=== PATIENT | male | born 1955 | race Caucasian/White ===

== ENCOUNTER 2017-09-16 19:58 | Emergency (ER) | payer MEDICARE, MEDICAID ==
[~2017-09-16] VITALS: Ht 170.2 cm; Wt 58.7 kg
[~2017-09-16 19:58] MED LIST: ALBU18HF2 PO; ASPI-1265 PO; COL100C PO; FLO0.4C PO; INSU100V9 SQ; LORA2TAB PO; MIRT30TA8 PO; MORP30TA PO; PANT-47 PO; TRAZ-143 PO
[2017-09-16] MEDS ORDERED: normal saline 1000ML IV soln IVB ONE (20:55)
[2017-09-16] MEDS: HYDROmorphone 1 mg/ml syringe IV PRN ×2 (21:07→21:46)
[2017-09-16 21:08] LABS: BASOPHILS # (AUTO) 0.1 X10'3 (0-0.2); BASOPHILS % (AUTO) 0.8 % (0-1); EOSINOPHILS # (AUTO) 0.2 X10'3 (0-0.9); EOSINOPHILS % (AUTO) 1.7 % (0-6); HEMATOCRIT 47.2 % (42.0-52.0); HEMOGLOBIN 15.6 g/dl (14.0-17.9); MEAN CORPUSCULAR HEMOGLOBIN 30.6 PG (27.0-31.0); MEAN CORPUSCULAR HGB CONC 33.1 % (33.0-36.5); MEAN CORPUSCULAR VOLUME 92.3 FL (78-98); MEAN PLATELET VOLUME 8.1 FL (7.4-10.4); MONOCYTES # (AUTO) 0.8 X10'3 (0-0.9); MONOCYTES % (AUTO) 6.9 % (2-12); NEUTROPHILS # (AUTO) 7.9 X10'3 (1.8-7.7); NEUTROPHILS % (AUTO) 72.6 % (42-75); PLATELET COUNT 263 X10'3 (140-440); RED BLOOD COUNT 5.12 X10'6 (4.70-6.10); RED CELL DISTRIBUTION WIDTH 14.1 % (11.5-14.5); WHITE BLOOD COUNT 10.9 X10'3 (4.5-11.0)
[2017-09-16 21:15] LABS: GLUCOSE, URINE >=1000 mg/dl (Neg); KETONES,URINE NEGATIVE (Neg); LEUKOCYTE ESTERASE ,URINE TRACE (Neg); NITRITES, URINE POSITIVE (Neg); OCCULT BLOOD,URINE LARGE (Neg); PH,URINE 5.5 (4.8-8.0); PROTEIN,URINE 100 mg/dl (Neg); UROBILINOGEN,URINE 0.2 E.U/dL (0.2-1.0)
[2017-09-16 21:18] LABS: COLOR,URINE BROWN (Yellow); UA COLLECTION TYPE CLN CATCH MIDSTREAM
[2017-09-16 21:22] LABS: CLARITY,URINE CLOUDY (Clear)
[2017-09-16 21:23] LABS: RBC,URINE TNTC /HPF (0-2); WBC,URINE 20-30 /HPF (0-4)
[2017-09-16 21:24] LABS: BACTERIA,URINE FEW /HPF (Neg); SQUAMOUS EPITHELIAL CELL,UR FEW /LPF (FEW); YEAST MANY /HPF (NEGATIVE)
[2017-09-16 21:25] LABS: ALANINE AMINOTRANSFERASE 18 U/L (12-78); ALBUMIN 3.4 G/DL (3.4-5.0); ALBUMIN/GLOBULIN RATIO 0.9 (1.1-1.5); ALKALINE PHOSPHATASE 71 IU/L (46-116); ANION GAP 7 (8-16); ASPARTATE AMINO TRANSFERASE 7 U/L (10-37); BILIRUBIN,TOTAL 0.2 MG/DL (0.1-1.0); BLOOD UREA NITROGEN 24 MG/DL (7-18); BUN/CREATININE RATIO 20.3 (5.4-32.0); CALCIUM 8.8 MG/DL (8.5-10.1); CHLORIDE 97 MMOL/L (99-107); CREATININE 1.18 MG/DL (0.60-1.10); LIPASE 134 U/L (73-393); POTASSIUM 4.3 MMOL/L (3.5-5.1); SODIUM 129 MMOL/L (135-145); TOTAL CARBON DIOXIDE 24.8 MMOL/L (24-32); eGFR 63 ML/MIN
[2017-09-16 21:33] LABS: GLUCOSE 552 MG/DL (70-104)
[2017-09-16] MEDS ORDERED: LEVO500T89 PO (22:00)
[2017-09-16] MEDS ORDERED: insulin regular, human 10 units/0.1 ml syringe IV ONE (22:00)
[2017-09-16] MEDS ORDERED: levoFLOXACIN 250mg tablet PO ONE (22:25)
[2017-09-16 22:26] VITALS: BP 154/107
== END 2017-09-16 22:32 | disposition home or self-care (01) ==
LOC: ER 19:59
DX: N39.0 Urinary tract infection, site not specified (principal); E11.65 Type 2 diabetes mellitus with hyperglycemia; R31.9 Hematuria, unspecified; E11.42 Type 2 diabetes mellitus with diabetic polyneuropathy; I25.10 Atherosclerotic heart disease of native coronary artery without angina pectoris; E78.00 Pure hypercholesterolemia, unspecified; I10 Essential (primary) hypertension; G89.29 Other chronic pain; F41.9 Anxiety disorder, unspecified; N28.9 Disorder of kidney and ureter, unspecified; Z88.6 Allergy status to analgesic agent; Z88.5 Allergy status to narcotic agent; Z88.8 Allergy status to other drugs, medicaments and biological substances; Z79.4 Long term (current) use of insulin; Z79.82 Long term (current) use of aspirin; Z79.899 Other long term (current) drug therapy; Z95.1 Presence of aortocoronary bypass graft; Z87.11 Personal history of peptic ulcer disease
CPT/HCPCS: 36415; 74176; 80053; 81001; 82948; 83690; 85025; 87077; 87088; 96374; 96375; 96376; 99285; J1170; J1815; J7030

== ENCOUNTER 2017-11-08 18:22 | Emergency (ER) | payer MEDICARE, MEDICAID ==
[~2017-11-08] VITALS: Ht 170.2 cm; Wt 129.0 kg
[2017-11-08] MEDS ORDERED: LORazepam 2 mg/ml vial IV ONE (18:50)
[2017-11-08 20:26] VITALS: BP 136/75
== END 2017-11-08 20:28 | disposition home or self-care (01) ==
LOC: ER 18:23
DX: F41.9 Anxiety disorder, unspecified (principal); E11.42 Type 2 diabetes mellitus with diabetic polyneuropathy; E78.00 Pure hypercholesterolemia, unspecified; I10 Essential (primary) hypertension; I25.10 Atherosclerotic heart disease of native coronary artery without angina pectoris; G89.29 Other chronic pain; Z95.1 Presence of aortocoronary bypass graft; Z88.5 Allergy status to narcotic agent; Z79.82 Long term (current) use of aspirin; Z79.4 Long term (current) use of insulin; Z79.899 Other long term (current) drug therapy
CPT/HCPCS: 93005; 96374; 99284; J2060

== ENCOUNTER 2017-12-09 13:50 | Inpatient (IN) | payer MEDICARE, MEDICAID ==
[~2017-12-09] VITALS: Ht 170.2 cm; Wt 59.5 kg
[~2017-12-09 13:50] MED LIST changes: -ASPI-1265 PO; +ATOR10TA PO; +CLON-529 PO; -COL100C PO; -MIRT30TA8 PO; -MORP30TA PO; -TRAZ-143 PO
[2017-12-09] MEDS ORDERED: BUPR900F3 BU (15:35)
[2017-12-09 16:02] LABS: BASOPHILS # (AUTO) 0.1 X10'3 (0-0.2); EOSINOPHILS # (AUTO) 0.1 X10'3 (0-0.9); EOSINOPHILS % (AUTO) 1.3 % (0-6); LYMPHOCYTES # (AUTO) 1.6 X10'3 (1.1-4.8); LYMPHOCYTES % (AUTO) 18.1 % (21-51); MEAN CORPUSCULAR HGB CONC 33.3 % (33.0-36.5); MEAN PLATELET VOLUME 8.8 FL (7.4-10.4); MONOCYTES # (AUTO) 0.9 X10'3 (0-0.9); MONOCYTES % (AUTO) 10.1 % (2-12); NEUTROPHILS # (AUTO) 6.3 X10'3 (1.8-7.7); NEUTROPHILS % (AUTO) 69.5 % (42-75); PRE OP HEMATOCRIT 47.7 % (42.0-52.0); PRE OP HEMOGLOBIN 15.9 g/dL (14.0-17.9); PRE OP PLATELET COUNT 176 X10'3 (140-440); RED CELL DISTRIBUTION WIDTH 13.6 % (11.5-14.5)
[2017-12-09 16:17] LABS: BLOOD UREA NITROGEN 18 MG/DL (7-18); BUN/CREATININE RATIO 19.8 (5.4-32.0); CHLORIDE 96 MMOL/L (99-107); CREATININE 0.91 MG/DL (0.60-1.10); PRE OP ANION GAP 9 (8-16); PRE OP SODIUM 132 MMOL/L (135-145); TOTAL CARBON DIOXIDE 26.6 MMOL/L (24-32)
[2017-12-09 16:18] LABS: ALBUMIN 3.6 G/DL (3.4-5.0); ALBUMIN/GLOBULIN RATIO 0.9 (1.1-1.5); ALKALINE PHOSPHATASE 72 IU/L (46-116); CALCIUM 9.2 MG/DL (8.5-10.1); PRE OP ALT 21 U/L (30-65); PRE OP AST 16 U/L (10-37); PRE OP BILIRUB, TOTAL 0.3 MG/DL (0.0-1.0); TOTAL PROTEIN 7.6 G/DL (6.4-8.2); eGFR 85 ML/MIN
[2017-12-09 16:19] LABS: PRE OP GLUCOSE 272 MG/DL (70-104)
[2017-12-09 16:29] LABS: HEMOGLOBIN A1C 10.2 % (4.5-6.2)
[2017-12-10] MEDS ORDERED: PROM25TA14 PO (09:23)
[2017-12-10] MEDS ORDERED: LOSA50TA3 PO (09:23)
[2017-12-11] VITALS (26 sets, daily range): BP systolic 103–167; BP diastolic 55–99
[2017-12-11] MEDS ORDERED: ringers solution, lacted 1,000 ML IV SCH ×2 (05:00→12:21)
[2017-12-11] MEDS ORDERED: ceFAZolin 2gm in dextrose, iso 100 ML IV ONE (05:30)
[2017-12-11] MEDS ORDERED: famotidine 20mg tablet PO ONE (05:30)
[2017-12-11] MEDS ORDERED: LIDOcaine 1% (10mg/ml) 2ml vial ONE (07:22)
[2017-12-11] MEDS ORDERED: heparin 10,000 units/1 ML INJ ONE (07:38)
[2017-12-11] MEDS ORDERED: albuterol 2.5 MG/3 ML nebule ONE (08:20)
[2017-12-11] MEDS ORDERED: midazolam 2 mg/2 ml injection ONE ×2 (10:42→11:32)
[2017-12-11] MEDS ORDERED: propofol inj 20 ML IV ONE (10:42)
[2017-12-11] MEDS ORDERED: LIDOcaine 1%/PF (10mg/ml) 5ml vial ONE (10:42)
[2017-12-11] MEDS ORDERED: rocuronium 10mg/ml inj IV ONE (10:43)
[2017-12-11] MEDS ORDERED: sevoflurane 250ml liquid IH ONE (11:34)
[2017-12-11] MEDS ORDERED: fentaNYL /PF 50mcg/ml 5ml ampule ONE (11:34)
[2017-12-11] MEDS ORDERED: phenylephrine 10mg/ml inj IV ONE (11:50)
[2017-12-11] MEDS ORDERED: heparin 1,000unit/ml 10ml vial 10 ML ONE (12:05)
[2017-12-11] MEDS ORDERED: HYDROmorphone inj. 0.5 MG/0.5 ML DISP.SYRIN IV PRN ×2 (12:25)
[2017-12-11] MEDS ORDERED: meperidine/PF 50mg/ml syringe IV PRN (12:25)
[2017-12-11] MEDS ORDERED: fentaNYL/PF 50MCG/1 ML 2ML syringe IV PRN ×2 (12:25)
[2017-12-11] MEDS ORDERED: proCHLORperazine 10 MG/2 ml inj IV PRN (12:25)
[2017-12-11] MEDS ORDERED: ondansetron/PF 4mg/2ml inj IV PRN ×2 (12:25→13:00)
[2017-12-11] MEDS ORDERED: glycopyrrolate 0.2mg/ml inj ONE ×2 (12:27→12:28)
[2017-12-11] MEDS ORDERED: neostigmine methylsulfate 1 MG/ML 10ml vial ONE (12:27)
[2017-12-11] MEDS ORDERED: LIDOcaine 2% (20mg/ml) 5ml vial ONE (12:38)
[2017-12-11] MEDS ORDERED: naloxone 0.4 mg/ml inj IV PRN (13:00)
[2017-12-11] MEDS ORDERED: CADD PCA waste documentation MC PRN (13:00)
[2017-12-11] MEDS: Potassium Cl inj 20 MEQ in ringers solution, lacted 1,000 ML IV SCH ×2 (13:00→19:47)
[2017-12-11] MEDS ORDERED: HYDROmorphone/NS 1 mg/ml CADD 50 ML IV SCH (13:25)
[2017-12-11] MEDS: HYDROmorphone/NS 1 mg/ml CADD 50 ML IV SCH ×6 (13:36→23:00)
[2017-12-11] MEDS: meperidine/PF 50mg/ml syringe IV PRN ×2 (13:41→14:23)
[2017-12-11] MEDS ORDERED: albuterol 2.5 MG/3 ML nebule NEB PRN (16:00)
[2017-12-11] MEDS ORDERED: proMETHazine 25mg tablet PO PRN (16:05)
[2017-12-11] MEDS: ceFAZolin 1GM/D5W- ADD-VANTAGE 50 ML IV SCH (16:41)
[2017-12-11] MEDS ORDERED: dextrose ORAL solution 15 GM/59 ML bottle PO PRN ×2 (17:45)
[2017-12-11] MEDS ORDERED: MESSAGE TO PHARMACY PO ONE (17:45)
[2017-12-11] MEDS ORDERED: insulin regular, human vial - multi-dose SQ SCH (17:45)
[2017-12-11] MEDS ORDERED: dextrose 50%-water 50ml dispensing syringe IV PRN ×2 (17:45)
[2017-12-11] MEDS ORDERED: glucagon, human recombinant 1mg kit SUBCUT PRN (17:45)
[2017-12-11] MEDS: LORazepam 1 MG tablet PO SCH (19:02)
[2017-12-11] MEDS: pantoprazole 40mg Tablet.DR PO SCH (19:47)
[2017-12-11] MEDS: tamsulosin 0.4mg capsule PO SCH (19:47)
[2017-12-11] MEDS ORDERED: BUPRENORPHINE HCL 900 MCG BU SCH (20:00)
[2017-12-11] MEDS ORDERED: LORazepam 1 MG tablet PO SCH (20:00)
[2017-12-11] MEDS: insulin glargine (Lantus) pen - multi-dose SQ SCH (21:00)
[2017-12-12] VITALS: BP 130/77
[2017-12-12] MEDS: ceFAZolin 1GM/D5W- ADD-VANTAGE 50 ML IV SCH ×2 (00:15→08:16)
[2017-12-12] MEDS: HYDROmorphone/NS 1 mg/ml CADD 50 ML IV SCH ×4 (01:00→07:00)
[2017-12-12] MEDS: Potassium Cl inj 20 MEQ in ringers solution, lacted 1,000 ML IV SCH ×2 (04:58→14:45)
[2017-12-12] MEDS ORDERED: ringers solution, lacted 1,000 ML IV SCH (05:00)
[2017-12-12] MEDS ORDERED: albuterol 2.5 MG/3 ML nebule NEB ONE (05:30)
[2017-12-12] MEDS ORDERED: famotidine 20mg tablet PO ONE (05:30)
[2017-12-12 07:40] VITALS: BP 117/58
[2017-12-12] MEDS: insulin glargine (Lantus) pen - multi-dose SQ SCH ×2 (08:00→21:12)
[2017-12-12] MEDS: losartan 50mg tablet PO SCH (08:13)
[2017-12-12] MEDS: tamsulosin 0.4mg capsule PO SCH ×2 (08:14→21:07)
[2017-12-12] MEDS: pantoprazole 40mg Tablet.DR PO SCH ×2 (08:14→21:07)
[2017-12-12] MEDS: LORazepam 1 MG tablet PO SCH ×3 (08:14→19:12)
[2017-12-12] MEDS: atorvastatin 10mg tablet PO SCH (08:14)
[2017-12-12 08:30] VITALS: BP 115/71
[2017-12-12 11:00] VITALS: BP 73/46
[2017-12-12 11:48] VITALS: BP 100/89
[2017-12-12] MEDS: oxyCODONE/APAP 10/325mg tablet PO PRN ×2 (12:12→17:48)
[2017-12-12] MEDS: cloNIDine 0.1 mg tablet PO SCH (12:14)
[2017-12-12] MEDS: insulin Lispro (HumaLOG) vial - multi-dose SQ SCH ×2 (19:06→21:11)
[2017-12-12] MEDS ORDERED: LORazepam 2 mg/ml vial IV ONE (19:25)
[2017-12-12 20:00] VITALS: BP 97/66
[2017-12-13] VITALS: BP 102/50
[2017-12-13] MEDS: Potassium Cl inj 20 MEQ in ringers solution, lacted 1,000 ML IV SCH ×4 (00:20→20:53)
[2017-12-13] MEDS: oxyCODONE/APAP 10/325mg tablet PO PRN ×4 (04:11→20:49)
[2017-12-13 06:53] VITALS: BP 119/62
[2017-12-13 07:00] VITALS: BP 119/62
[2017-12-13] MEDS: losartan 50mg tablet PO SCH (07:29)
[2017-12-13] MEDS: atorvastatin 10mg tablet PO SCH (07:30)
[2017-12-13] MEDS: pantoprazole 40mg Tablet.DR PO SCH ×2 (07:30→20:35)
[2017-12-13] MEDS: tamsulosin 0.4mg capsule PO SCH ×2 (07:30→20:35)
[2017-12-13] MEDS: LORazepam 1 MG tablet PO SCH ×2 (07:30→19:10)
[2017-12-13] MEDS: insulin glargine (Lantus) pen - multi-dose SQ SCH ×2 (07:34→21:25)
[2017-12-13] MEDS: insulin Lispro (HumaLOG) vial - multi-dose SQ SCH ×3 (09:02→19:09)
[2017-12-13 11:00] VITALS: BP 128/57
[2017-12-13] MEDS: cloNIDine 0.1 mg tablet PO SCH (12:43)
[2017-12-13 19:00] VITALS: BP 121/67
[2017-12-13] MEDS: nicotine 14mg patch - 24hr TD SCH (20:49)
[2017-12-14] VITALS: BP 136/69
[2017-12-14] MEDS: oxyCODONE/APAP 10/325mg tablet PO PRN ×5 (00:52→20:24)
[2017-12-14] MEDS: Potassium Cl inj 20 MEQ in ringers solution, lacted 1,000 ML IV SCH ×2 (05:15→13:50)
[2017-12-14 07:00] VITALS: BP 125/69
[2017-12-14] MEDS: tamsulosin 0.4mg capsule PO SCH ×2 (07:38→20:24)
[2017-12-14] MEDS: atorvastatin 10mg tablet PO SCH (07:38)
[2017-12-14] MEDS: pantoprazole 40mg Tablet.DR PO SCH ×2 (07:38→20:24)
[2017-12-14] MEDS: aspirin 81mg tablet.DR PO SCH (07:38)
[2017-12-14] MEDS: LORazepam 1 MG tablet PO SCH ×2 (07:38→19:00)
[2017-12-14] MEDS: losartan 50mg tablet PO SCH (07:39)
[2017-12-14] MEDS: insulin glargine (Lantus) pen - multi-dose SQ SCH ×2 (08:23→21:11)
[2017-12-14] MEDS: nicotine 14mg patch - 24hr TD SCH (08:41)
[2017-12-14 11:15] VITALS: BP 122/63
[2017-12-14] MEDS: cloNIDine 0.1 mg tablet PO SCH (11:58)
[2017-12-14] MEDS: insulin Lispro (HumaLOG) vial - multi-dose SQ SCH ×2 (13:45→18:55)
[2017-12-14 19:00] VITALS: BP 107/64
[2017-12-15] VITALS: BP 142/88
[2017-12-15] MEDS: oxyCODONE/APAP 10/325mg tablet PO PRN ×5 (00:02→21:06)
[2017-12-15 07:00] VITALS: BP 123/69
[2017-12-15] MEDS: LORazepam 1 MG tablet PO SCH ×2 (08:09→18:49)
[2017-12-15] MEDS: aspirin 81mg tablet.DR PO SCH (08:09)
[2017-12-15] MEDS: pantoprazole 40mg Tablet.DR PO SCH ×2 (08:09→19:43)
[2017-12-15] MEDS: atorvastatin 10mg tablet PO SCH (08:10)
[2017-12-15] MEDS: nicotine 14mg patch - 24hr TD SCH (08:10)
[2017-12-15] MEDS: losartan 50mg tablet PO SCH (08:10)
[2017-12-15] MEDS: tamsulosin 0.4mg capsule PO SCH ×2 (08:11→19:43)
[2017-12-15] MEDS: insulin glargine (Lantus) pen - multi-dose SQ SCH ×2 (08:17→21:03)
[2017-12-15] MEDS: insulin Lispro (HumaLOG) vial - multi-dose SQ SCH ×3 (08:48→18:48)
[2017-12-15 11:00] VITALS: BP 112/73
[2017-12-15] MEDS: cloNIDine 0.1 mg tablet PO SCH (11:03)
[2017-12-15 19:00] VITALS: BP 117/65
[2017-12-15] MEDS ORDERED: tamsulosin 0.4mg capsule PO SCH (21:00)
[2017-12-15] MEDS ORDERED: magnesium citrate 296ml oral solution PO ONE (21:35)
[2017-12-16] VITALS: BP 117/63
[2017-12-16] MEDS: oxyCODONE/APAP 10/325mg tablet PO PRN ×4 (01:27→14:39)
[2017-12-16 06:30] VITALS: BP 120/67
[2017-12-16 07:00] VITALS: BP 108/66
[2017-12-16] MEDS: atorvastatin 10mg tablet PO SCH (07:13)
[2017-12-16] MEDS: tamsulosin 0.4mg capsule PO SCH (07:13)
[2017-12-16] MEDS: LORazepam 1 MG tablet PO SCH (07:13)
[2017-12-16] MEDS: losartan 50mg tablet PO SCH (07:14)
[2017-12-16] MEDS: aspirin 81mg tablet.DR PO SCH (07:14)
[2017-12-16] MEDS: pantoprazole 40mg Tablet.DR PO SCH (07:14)
[2017-12-16] MEDS: nicotine 14mg patch - 24hr TD SCH (07:15)
[2017-12-16] MEDS: insulin glargine (Lantus) pen - multi-dose SQ SCH (08:00)
[2017-12-16] MEDS: insulin Lispro (HumaLOG) vial - multi-dose SQ SCH (08:19)
[2017-12-16] MEDS ORDERED: magnesium hydroxide 30ml (MOM) UD suspension PO PRN (12:05)
[2017-12-16] MEDS: cloNIDine 0.1 mg tablet PO SCH (12:28)
== END 2017-12-16 16:50 | disposition home or self-care (01) | DRG 253 ==
LOC: EDSTATUS 13:50 → PAS IN 12-11 07:07 → EDSTATUS 12-11 10:15 → SUR 3N 12-11 15:44
PROVIDERS: ADMIT Surgery; ATTEND Surgery
PROC: 04CK0ZZ Extirpation of Matter from Right Femoral Artery, Open Approach (ICD-10-PCS; principal; 2017-12-11 11:34)
DX: I70.211 Atherosclerosis of native arteries of extremities with intermittent claudication, right leg (principal); E87.1 Hypo-osmolality and hyponatremia; K31.84 Gastroparesis; E11.43 Type 2 diabetes mellitus with diabetic autonomic (poly)neuropathy; E11.51 Type 2 diabetes mellitus with diabetic peripheral angiopathy without gangrene; M19.90 Unspecified osteoarthritis, unspecified site; F41.9 Anxiety disorder, unspecified; F17.200 Nicotine dependence, unspecified, uncomplicated; Z95.5 Presence of coronary angioplasty implant and graft; Z88.5 Allergy status to narcotic agent; Z88.8 Allergy status to other drugs, medicaments and biological substances; Z79.899 Other long term (current) drug therapy; Z87.19 Personal history of other diseases of the digestive system
CPT/HCPCS: 36415; 80053; 82948; 83036; 85025; 86885; 86900; 86901; 86920; 87070; 93922; 93926; 94640; 94760; 97116; 97162; A4315; A4353; A6255; A6257; A6402; A6446; A6449; A7000; C1757; C1758; J0690; J1170; J1644; J1815; J2001; J2060; J2175; J2250; J2370; J2405; J2704; J2710; J3010; J3480; J3490; J7030; J7120; Q0169